=== PATIENT | female | born 1990 | race Hispanic/Latino ===

== ENCOUNTER 2018-02-11 15:43 | Day surgery (SDC) | payer SELFPAY ==
[2018-02-11 17:05] VITALS: BMI 33.8
[2018-02-11 18:45] LABS: Bilirubin Negative (Negative); Blood, Urine Negative (Negative); Clarity CLEAR (Clear); Glucose, Urine (Dipstick) Negative (Negative); Leukocyte Trace (Negative); Nitrite Negative (Negative); Protein, Urine (Dipstick) Negative (Neg-Trace); Urobilinogen 0.2 mg/dL (0.2-1.0); pH, Urine 6.5 (5.0-9.0)
[2018-02-11 18:46] LABS: Bacteria/HPF None Seen HPF (None Seen); Hyaline Casts/LPF 0-3 HYALINE CAST LPF (0-3 Hyaline); Pathc Cast-AUWi Flag 0.43 (0-2.49); RBC/HPF 0-3 HPF (0-3); Squamous Epithelial 0-3 HPF (0-3); WBC/HPF 0-3 HPF (0-3)
[2018-02-11 18:48] LABS: Specific Gravity, Urine 1.005 (1.002-1.036)
--- NOTE | 2018-02-11 20:02 | PDOC.EVN ---
Event Note - Event Note Event Note: S: 27yo G1 at 34 EGA confirmed with 12 week US presented for contractions. Full H&P in physical chart. Contractions remain to be non-painful. Pt feels well with no complaints at this time. O- BP 105/64, HR 138, RR 16, T 98.6 FHT: baseline 140's, mod variability, no deccels/accels. Cat 1. Contractions: q4-5min SVE: fingertip on second check A/P: - pt not in labor, UA and VP3 are pending - will discharge and call pt with results - follow up at [facility] <Carter Vásquez - Last Filed: 02/11/18 20:00> Attending Addendum - Attending Addendum Date/Time: 02/11/18 2195 I personally evaluated the patient and discussed the management with Dr. Vásquez. I agree with the History, Examination, Assessment and Plan documented above. Patient not feeling ctx and exam unchanged over 2 hours. D/c home with precautions. <Jolanta Mcnamara - Last Filed: 02/11/18 22:53>
[2018-02-13 20:52] LABS: Chlamydia by PCR Not Detected (NotDetected)
== END 2018-02-11 19:25 | disposition home or self-care (01) ==
LOC: L&D/OP 15:43
PROVIDERS: ATTEND Obstetrics & Gynecology
DX: O47.03 False labor before 37 completed weeks of gestation, third trimester (principal); O24.415 Gestational diabetes mellitus in pregnancy, controlled by oral hypoglycemic drugs; Z3A.34 34 weeks gestation of pregnancy; Z79.82 Long term (current) use of aspirin; Z79.84 Long term (current) use of oral hypoglycemic drugs; Z79.899 Other long term (current) drug therapy
CPT/HCPCS: 81003; 81015; 87480; 87491; 87510; 87591; 87660; 99285

== ENCOUNTER 2018-03-19 05:41 | Inpatient (IN) | payer MEDICAID, OTHER, SELFPAY ==
[2018-03-19 06:11] VITALS: BMI 32.9
--- NOTE | 2018-03-19 06:26 | PDOC.LDHP ---
Labor and Delivery H&P HPI: 27 yo G1 at 39 at 39.1 here for back pain. Started yesterday after clinic when she was seen for her care and had a cervical check. She rates it 11/30 and it does not radiate. It is localized to b/l lower back and lower abdomen. Describes it as crampy. Has not taken any medications. She endorses minimal vaginal bleeding enough to soak through a pad after being checked in clinic yesterday. Endorses FM and denies LOF/VD. Current gestational age (weeks): 39 (39.1) Due date: 03/25/18 Grav: 1 Para: 0 Current complications: gestational diabetes Abnormal US findings: No Current medications: pre-neda vitamins, other (metformin 500mg BID) Social history: none - Physical Exam General: breathing through contractions, other (discomfort from p ain) Heart: RRR Lungs: CTAB Abdomen: gravid FHT: category 1 [place] contractions every: 2-3 min - Vaginal Exam cm dilated: 4 - OB Labs Blood type: O RH: positive Antibody Screen: negative HIV: negative RPR: negative HEPSAg: negative GBS: negative - Assessment L&D Assessment: term patient in labor - Plan -: 27 yo G1 at 39.1 here with latent labor 1. sIUP, latent labor -SVE: /-1 -FHT: Cat I, christen q2-3min -U/S on 03/04 shows Hadlock of 83% -stadol due to pain from CTXs -will admit for expectant management of labor 2. GDMA2 -accucheck 3. High risk HPV -continue outpatient workup <Nika Mak - Last Filed: 03/19/18 07:56> <Momo Burton - Last Filed: 03/22/18 09:06> Allergies/Adverse Reactions: Allergies Allergy/AdvReac Type Severity Reaction Status Date / Time No Known Allergies Allergy Verified 02/11/18 16:42 Attending Addendum - Attending Addendum Date/Time: 03/22/18 0906 I personally evaluated the patient and discussed the management with Dr. Mak. I agree with the History, Examination, Assessment and Plan documented above. <Momo Burton - Last Filed: 03/22/18 09:06>
[2018-03-19] MEDS ORDERED: Acetaminophen 500 MG TAB PO PRN (07:46)
[2018-03-19] MEDS ORDERED: Promethazine HCl 25 MG/ML VIAL IM PRN ×2 (07:46→14:07)
[2018-03-19] MEDS ORDERED: NS / Oxytocin 40 units/1000ml 1,000 ML IV PRN (07:46)
[2018-03-19] MEDS ORDERED: Ondansetron PF 4 MG/2 ML Vial IVP PRN ×2 (07:46→14:07)
[2018-03-19] MEDS ORDERED: Lidocaine 1% (PF) 30 ML VIAL SC PRN (07:46)
[2018-03-19] MEDS ORDERED: Butorphanol Tartrate 1 MG/ML VIAL SLOW IVP PRN (07:54)
[2018-03-19] MEDS: Lactated Ringer's 1,000 ML IV SCH ×3 (08:18→17:30)
[2018-03-19 08:40] LABS: Mean Corpuscular HGB CONC 33.8 g/dL (32.0-36.0); Mean Corpuscular Hemoglobin 28.4 pg (27.0-31.0); Mean Corpuscular Volume 84.2 fL (78.0-98.0); Mean Platelet Volume 7.6 fL (7.4-10.4); Platelet Count 298 thou/uL (130-400); RBC Distribution Width 14.9 % (11.5-14.5); Red Blood Cell (RBC) Count 4.23 mill/uL (4.20-5.40); White Blood Cell (WBC) Count 11.1 thou/uL (4.8-10.8)
[2018-03-19] MEDS ORDERED: Fentanyl 4 mcg/Bup 0.1% Cadd 100 ML ONE ×3 (08:54→20:45)
[2018-03-19 09:20] LABS: Syphilis Antibody Nonreactive (Nonreactive); Syphilis Antibody Index 0.05 S/CO (<1.00 Non-Reactive)
[2018-03-19 09:21] LABS: HBSAg Index 0.21 S/CO (0-0.99); Hep B Surf Ag Non-Reactive S/CO (NonReactive)
[2018-03-19] MEDS ORDERED: Dextrose 50% Abboject 50 ML SYRINGE SLOW IVP PRN (10:06)
[2018-03-19] MEDS ORDERED: HumaLOG 300 UNITS/3 ML VIAL SC PRN (10:06)
[2018-03-19] MEDS ORDERED: Dextrose 5% in Water 1,000 ML IV PRN (10:06)
--- NOTE | 2018-03-19 13:02 | PDOC.LDPN ---
Labor & Delivery Progress Note - Subjective Subjective: comfortable - Objective Vital signs reviewed and normal: yes General: NAD, resting Uterine fundus: non tender Dilation: 7 Effacement: 100% Station: 0 FHT: category 2 (130/mod/+ accels/occasional early and variable decels) [place] contractions every: 2-3min AROM: meconium stained fluid Plan: continue plan of care -: 27 yo at 39.1wks by LMP sIUP - SVE: 7/100/0, checked by nurse who reported continued bloody fluid. Pt with no abdominal pain, VS stable. Will continue to monitor - FHT: Cat II for occasional and variable decels. christen q2-3min - U/S on 03/04 shows Hadlock of 83% - Epidural in place GDMA2 - Accucheck q2h - SSI - Hypoglycemic protocol - Last glucose 115 Iron Def Anemia - Hg 12 Hx of Chlamydia in - Negative LI High risk HPV - Colpo on 11/16 showed 3 suspicious lesions - Continue outpatient workup 6 wk pp <Lexis Dietz - Last Filed: 03/19/18 13:20> Attending Addendum - Attending Addendum Date/Time: 03/24/18 6440 I personally evaluated the patient and discussed the management with Dr. Lee I agree with the History, Examination, Assessment and Plan documented above with any addition or exceptions noted below. <Yobany Gomez - Last Filed: 03/24/18 07:41>
[2018-03-19] MEDS ORDERED: Acetaminophen 325 MG TAB PO PRN (14:07)
[2018-03-19] MEDS ORDERED: Eucerin (Mineral Oil/Petrolatum,White) 30 gm Jar TOP PRN (14:07)
[2018-03-19] MEDS ORDERED: diphenhydrAMINE 50 MG/ML VIAL IVP PRN (14:07)
[2018-03-19] MEDS ORDERED: Lactated Ringer's 500 ML IV PRN (14:07)
[2018-03-19] MEDS ORDERED: Naloxone HCl 0.4 mg/ml Vial IVP PRN ×2 (14:07)
[2018-03-19] MEDS ORDERED: ePHEDrine/0.9% NaCl/PF SYRINGE 50 mg/10 ml SLOW IVP PRN (14:07)
[2018-03-19] MEDS ORDERED: Communication Order-Pharmacy FS SCH (14:15)
[2018-03-19] MEDS: Fentanyl 4 mcg/Bupivacaine 0.1% Cassette 100 ML EPIDURAL SCH ×2 (14:50→20:46)
--- NOTE | 2018-03-19 15:16 | PDOC.LDPN ---
Labor & Delivery Progress Note - Subjective Subjective: comfortable - Objective Vital signs reviewed and normal: yes General: NAD Uterine fundus: non tender Dilation: 8 Effacement: 100% Station: 0 FHT: category 2 (140/mod/+accels/early and variable decels) [place] contractions every: 2-3min - Assessment (1) Term Code(s): Z34.80 - ENCOUNTER FOR SUPRVSN OF NORMAL , UNSP TRIMESTER Status: Acute Plan: continue plan of care -: 27 yo at 39.1wks by LMP sIUP - SVE: 8/100/0, checked by nurse who reported continued bloody fluid. Pt with brief abdominal pain that was relieved with epidural, VS stable. Will continue to monitor - FHT: Cat II for occasional and variable decels. christen q2-3min - U/S on 03/04 shows Hadlock of 83% - Epidural in place - Continue serial checks GDMA2 - Accucheck q2h - SSI - Hypoglycemic protocol - Last glucose 93 Iron Def Anemia - Hg 12 Hx of Chlamydia in - Negative LI High risk HPV - Colpo on 11/16 showed 3 suspicious lesions - Continue outpatient workup 6 wk pp <Lexis Dietz - Last Filed: 03/19/18 15:14> - Objective Resuscitative measures: other <Yobany Gomez - Last Filed: 03/24/18 07:42> Attending Addendum - Attending Addendum Date/Time: 03/24/1842 I personally evaluated the patient and discussed the management with Dr. Dietz I agree with the History, Examination, Assessment and Plan documented above with any addition or exceptions noted below. <Yobany Gomez - Last Filed: 03/24/18 07:42>
--- NOTE | 2018-03-19 16:34 | PDOC.FM ---
- Objective MAR Reviewed: Yes Vital Signs & Weight: Vital Signs (12 hours) Temp Pulse Resp BP 03/19/18 06:01 97.5 F L 81 16 153/95 H Weight Weight 81.647 kg Result Diagrams: 03/19/18 08:26 Dx/Plan (1) Term Code(s): Z34.80 - ENCOUNTER FOR SUPRVSN OF NORMAL , UNSP TRIMESTER Status: Acute - Plan Plan: 27 yo at 39.1wks by LMP sIUP - SVE: 8.5/100/0, Pt with intermittent abdominal pain mostly relieved by epidural, VS stable. - FHT: Cat II for occasional and variable decels. christen q2-3min - U/S on 03/04 shows Hadlock of 83% - Epidural in place - Continue serial checks GDMA2 - Accucheck q2h - SSI - Hypoglycemic protocol - Last glucose 93 Iron Def Anemia - Hg 12 Hx of Chlamydia in - Negative LI High risk HPV - Colpo on 11/16 showed 3 suspicious lesions - Continue outpatient workup 6 wk pp
--- NOTE | 2018-03-19 16:36 | PDOC.LDPN ---
Labor & Delivery Progress Note - Subjective Subjective: painful contractions - Objective Vital signs reviewed and normal: yes General: NAD Dilation: 8.5 Effacement: 100% Station: 0 FHT: category 2 (140/mod/+ accels/early and variable decels) [place] contractions every: 2-3min AROM: meconium stained fluid - Assessment (1) Term Code(s): Z34.80 - ENCOUNTER FOR SUPRVSN OF NORMAL , UNSP TRIMESTER Current Visit: Yes Status: Acute -: 27 yo at 39.1wks by LMP sIUP - SVE: 8.5/100/0, Pt with intermittent abdominal pain mostly relieved by epidural, VS stable. - Will insert IUPC and consider starting pit - FHT: Cat II for occasional and variable decels. christen q2-3min - U/S on 03/04 shows Hadlock of 83% - Epidural in place - Continue serial checks GDMA2 - Accucheck q2h - SSI - Hypoglycemic protocol - Last glucose 93 Iron Def Anemia - Hg 12 Hx of Chlamydia in - Negative LI High risk HPV - Colpo on 11/16 showed 3 suspicious lesions - Continue outpatient workup 6 wk pp
--- NOTE | 2018-03-19 18:34 | PDOC.LDPN ---
Labor & Delivery Progress Note - Subjective Subjective: comfortable - Objective Vital signs reviewed and normal: yes General: NAD Uterine fundus: non tender Dilation: 8.5 Effacement: 100% Station: 0 FHT: category 2 (150/moderate/+ accels/occasional early decels) [place] contractions every: 2-3min AROM: meconium stained fluid - Assessment (1) Term Code(s): Z34.80 - ENCOUNTER FOR SUPRVSN OF NORMAL , UNSP TRIMESTER Current Visit: Yes Status: Acute -: 27 yo at 39.1wks by LMP sIUP - SVE: unchanged, 8.5/100/0, abdominal pain resolved, VS stable. - IUPC in place with adequate contractions, transverse presentation. - Will start Pitocin - FHT: Cat II for occasional early decels. christen q2-3min - U/S on 03/04 shows Hadlock of 83% - Epidural in place - Continue serial checks GDMA2 - Accucheck q2h - SSI - Hypoglycemic protocol - Last glucose 108 Iron Def Anemia - Hg 12 Hx of Chlamydia in - Negative LI High risk HPV - Colpo on 11/16 showed 3 suspicious lesions - Continue outpatient workup 6 wk pp
[2018-03-19] MEDS ORDERED: NS w/ Oxytocin 10 units 500 ML ONE (20:27)
[2018-03-19] MEDS ORDERED: NS w/ Oxytocin 10 units 500 ML IV SCH (20:30)
--- NOTE | 2018-03-19 20:36 | PDOC.LDPN ---
Labor & Delivery Progress Note - Subjective Subjective: comfortable - Objective Vital signs reviewed and normal: yes General: NAD Uterine fundus: non tender Dilation: 8 Effacement: 100% Station: 0 FHT: category 2 (150/mod/no accels/1 variable decel) [place] contractions every: 2-3min AROM: meconium stained fluid IUPC placed: yes - Assessment (1) Term Code(s): Z34.80 - ENCOUNTER FOR SUPRVSN OF NORMAL , UNSP TRIMESTER Current Visit: Yes Status: Acute -: 27 yo at 39.1wks by LMP sIUP - SVE: unchanged, 8100/0, VS stable. - IUPC in place with adequate contractions, transverse presentation. - Pitocin has not yet been started, contractions no longer adequate - FHT: Cat II for rare variable decel. christen q2-3min - U/S on 03/04 shows Hadlock of 83% - Epidural in place - Continue serial checks GDMA2 - Accucheck q2h - SSI - Hypoglycemic protocol - Last glucose 108 Iron Def Anemia - Hg 12 Hx of Chlamydia in - Negative LI High risk HPV - Colpo on 11/16 showed 3 suspicious lesions - Continue outpatient workup 6 wk pp
[2018-03-19] MEDS ORDERED: Acetaminophen 1,000 MG in Premix Bag 1 BAG IVPB SCH (21:45)
[2018-03-19] MEDS ORDERED: CEFAZOLIN 2 GM/50 ML-DEXTROSE 2 GM in Premix Bag 1 BAG IVPB SCH (21:45)
--- NOTE | 2018-03-19 22:03 | PDOC.LDPN ---
Labor & Delivery Progress Note - Subjective Subjective: comfortable - Objective Vital signs reviewed and normal: yes General: NAD, resting Dilation: 9 Effacement: 100% Station: 1+ FHT: category 1 (baseline 150) [place] contractions every: 2-3 Resuscitative measures: maternal IV fluids Plan: continue plan of care -: 27 yo at 39.1wks by LMP sIUP - SVE:progressing since last check, /+1, VS stable. - IUPC in place with adequate contractions, transverse presentation. - U/S on 03/04 shows Hadlock of 83% - Epidural in place - Continue serial checks GDMA2 - Accucheck q2h - SSI - Hypoglycemic protocol - Last glucose 117 Iron Def Anemia - Hg 12 Hx of Chlamydia in - Negative LI High risk HPV - Colpo on 11/16 showed 3 suspicious lesions - Continue outpatient workup 6 wk pp
[2018-03-20] MEDS: NS / Oxytocin 40 units/1000ml 1,000 ML IV SCH ×2 (00:45→02:28)
[2018-03-20 01:24] LABS: Actual Bicarbonate (HCO3a) 22.2 mEq/L (22-28); Base Excess (BEa) -6.9 mEq/L (-2.0 to +3.0)
[2018-03-20 01:26] LABS: Actual Bicarbonate (HCO3v) 21 mEq/L (22-28); Base Excess -4.6 mEq/L (-2.0 to +3.0); pH (Cord, venous) 7.33 (7.32-7.43)
[2018-03-20] MEDS ORDERED: Milk Of Magnesia 30 ML UDCUP PO PRN (01:52)
[2018-03-20] MEDS ORDERED: Methylergonovine 0.2 MG TAB PO PRN (01:52)
[2018-03-20] MEDS ORDERED: Methylergonovine 0.2 MG/ML VIAL IM PRN (01:52)
[2018-03-20] MEDS ORDERED: Lanolin Ointment 7 GM TUBE TOP PRN (01:52)
[2018-03-20] MEDS ORDERED: Adacel (T-DAP) 0.5 ML VIAL IM ONE (01:52)
[2018-03-20] MEDS ORDERED: Bisacodyl 10 MG SUPP PR PRN (01:52)
--- NOTE | 2018-03-20 04:03 | DN-2 ---
DATE OF DELIVERY: 03/20/2018 DELIVERING PHYSICIANS: 1. Carter Vásquez M.D., PGY-1 2. Vamsi Hodges M.D., PGY-2 3. , PGY-3. ATTENDING: Yobany Gomez M.D. PROCEDURE: Spontaneous vaginal delivery. ANESTHESIA: Epidural. ESTIMATED BLOOD LOSS: 400 mL. PREOPERATIVE DIAGNOSES: 1. Term intrauterine in labor. 2. Gestational diabetes A2. 3. 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 POSTOPERATIVE DIAGNOSES: 1. Term intrauterine , delivered. 2. Gestational diabetes A2. 3. 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 INDICATIONS: A 27-year-old female, G1, P0-0-0-0 at 39 and 1 weeks presented in active labor. DELIVERY NOTE: This is a 27-year-old female, G1, P0-0-0-0 at 39 and 2 weeks who delivered a viable female infant at 0034 hours. Following an uneventful antepartum course, a vigorous female was delivered over an intact perineum in the occiput anterior position, anterior shoulder and then remainder of the body delivered. Nuchal cord x1, body cord x1. The head was held down and mouth and nares were bulb suctioned. Cord clamped and cut and cord blood collected. Placenta delivered intact with a 3-vessel cord noted. Fundal massage was performed and the fundus was firm. Cervix and vagina were inspected and a few first degree lacerations were noted on the perineal wall, but did not require repair at this time. Infant went to the nursery in good condition for routine care. Apgars were 8 and 9 at 1 and 5 minutes respectively. The patient tolerated delivery well and went to after routine recovery care. I was present and supervising the entire second and third stages of delivery. SUZE
[2018-03-20] MEDS: Ibuprofen 800 MG TAB PO SCH ×3 (04:26→22:51)
--- NOTE | 2018-03-20 07:55 | PDOC.PP ---
Post Progress Note Post Day #: 0 Subjective: Feeling well this morning. Having some cramping but it is improved with Motrin. She is feeling a little woozy when standing. Reports lochia is approx the amount of a menstrual cycle. Continuing to attempt but is concerned baby is not latching well. PO intake tolerated: yes Flatus: yes Ambulation: yes Vital Signs (12 hours) Temp Pulse Resp BP 03/20/18 06:00 98.5 F 86 18 134/65 03/20/18 03:50 98.4 F 88 18 132/76 Weight Weight 81.647 kg - Physical Examination General: NAD Cardiovascular: no m/r/g, RRR Respiratory: clear to auscultation bilaterally Abdominal: lochia (scant), appropriately TTP Fundus firm & at: umbilicus Neurological: no gross focal deficits Psychiatric: A&Ox3, normal affect Result Diagrams: 03/19/18 08:26 Additional Labs: Post Labs Blood Type O POSITIVE 03/19/18 08:26 Hep Bs Antigen Non-Reactive S/CO (NonReactive) 03/19/18 08:26 (1) Gestational diabetes Code(s): O24.419 - GESTATIONAL DIABETES MELLITUS IN , UNSP CONTROL Status: Acute - Assessment/Plan 27 yo G1 now P1001 who delivered earlier this morning via , PPD#0 1. PPD #0 - Ambulating and pain adequately controlled - Baby on bili lights this morning for [place] positive - Encouraged ambulation - Lightheaded, will check H&H this morning - Continue PNV - Motrin and Tylenol #3 PRN pain 2. A2GDM - Needs 6 week GTT
[2018-03-20] MEDS ORDERED: Benzocaine/Menthol 20-0.5% 60 ML CAN TOP PRN (07:56)
[2018-03-20 08:37] LABS: Hemoglobin 10.2 g/dL (12.0-16.0); Platelet Count 237 thou/uL (130-400)
[2018-03-20] MEDS: Docusate Calcium (SURFAK) 240 MG CAP PO SCH ×2 (09:45→22:51)
[2018-03-20] MEDS: Prenatal Vitamin 1 TAB PO SCH (09:45)
[2018-03-21] MEDS: Ibuprofen 800 MG TAB PO SCH ×3 (06:22→20:50)
--- NOTE | 2018-03-21 07:55 | PDOC.PP ---
Post Progress Note Post Day #: 1 Subjective: Pt reports doing well. Reports being sore in back. Has been getting up and moving around. Tolerating diet well. Pt concerned with at this time. Says not latching well. Reports lochia about same as period. Pt denies any lightheadness or dizziness. PO intake tolerated: yes Flatus: yes Ambulation: yes Vital Signs (12 hours) Temp Pulse Resp BP 03/20/18 20:00 98.3 F 75 18 100/60 Weight Weight 81.647 kg - Physical Examination General: NAD Cardiovascular: no m/r/g, RRR Respiratory: clear to auscultation bilaterally, non-labored breathing Abdominal: + bowel sounds, lochia (Same as period), no distention, appropriately TTP Extremities: negative homans (B) Neurological: no gross focal deficits Psychiatric: A&Ox3, normal affect Result Diagrams: 03/20/18 08:16 Additional Labs: Post Labs Blood Type O POSITIVE 03/19/18 08:26 Hep Bs Antigen Non-Reactive S/CO (NonReactive) 03/19/18 08:26 (1) Gestational diabetes Code(s): O24.419 - GESTATIONAL DIABETES MELLITUS IN , UNS CONTROL Status: Acute Qualifiers: Gestational diabetes mellitus control: oral hypoglycemic-controlled (2) Term Code(s): Z34.80 - ENCOUNTER FOR SUPRVSN OF NORMAL , [facility] TRIMESTER Status: Acute - Assessment/Plan 27 yo G1 now P1001 who delivered on 03/20/18 via at 0:34, PPD#1 1. PPD #1 - Reports having some back pain. Reports pain being controlled. Discussed with her likely due to length of labor and some muscle soreness due to pushing. Advised to continue to ask for pain medicine as needed - Baby on bili lights this morning for [place] positive. Likely will be here til tmrw - Encouraged ambulation - Continue PNV - Motrin and tylenol prn as needed. 2. A2GDM - Needs 6 week GTT. -BG has been elevated. Last check normal. Continue to monitor today. <Vamsi Hodges - Last Filed: 03/21/18 07:53> Weight Weight 180 lb Result Diagrams: 03/20/18 08:16 Additional Labs: Post Labs Blood Type O POSITIVE 03/19/18 08:26 Hep Bs Antigen Non-Reactive S/CO (NonReactive) 03/19/18 08:26 <Yobany Gomez - Last Filed: 03/24/18 07:50> Attending Addendum - Attending Addendum Date/Time: 03/24/18 0750 I personally evaluated the patient and discussed the management with Dr. Hodges I agree with the History, Examination, Assessment and Plan documented above with any addition or exceptions noted below. <Yobany Gomez - Last Filed: 03/24/18 07:50>
[2018-03-21] MEDS: Prenatal Vitamin 1 TAB PO SCH (09:46)
[2018-03-21] MEDS: Docusate Calcium (SURFAK) 240 MG CAP PO SCH ×2 (09:46→20:50)
[2018-03-21 20:30] VITALS: TEMP 97.6
[2018-03-22] MEDS: Ibuprofen 800 MG TAB PO SCH ×2 (05:19→13:44)
--- NOTE | 2018-03-22 07:59 | PDOC.PP ---
Post Progress Note Post Day #: 2 Subjective: Pt doing well. Reports some occasional leg pain but reports being well controlled with tylenol and motrin. Pt up and moving. No lightheadness or dizziness. Tolerating PO. No other concerns at this time. PO intake tolerated: yes Flatus: yes Ambulation: yes Weight Weight 81.647 kg - Physical Examination General: NAD Cardiovascular: no m/r/g, RRR Respiratory: clear to auscultation bilaterally, non-labored breathing Abdominal: + bowel sounds, lochia (Lochia same as period. No concerns), no distention, appropriately TTP Fundus firm & at: below umbilicus Neurological: no gross focal deficits Psychiatric: A&Ox3, normal affect Result Diagrams: 03/20/18 08:16 Additional Labs: Post Labs Blood Type O POSITIVE 03/19/18 08:26 Hep Bs Antigen Non-Reactive S/CO (NonReactive) 03/19/18 08:26 (1) Gestational diabetes Code(s): O24.419 - GESTATIONAL DIABETES MELLITUS IN , UNSP CONTROL Status: Acute Qualifiers: Gestational diabetes mellitus control: oral hypoglycemic-controlled (2) Term Code(s): Z34.80 - ENCOUNTER FOR SUPRVSN OF NORMAL , UNSP TRIMESTER Status: Acute - Assessment/Plan 27 yo G1 now P1001 who delivered on 03/20/18 via at 0:34, PPD#2 1. PPD #2 - Reports pain being controlled. Discussed with her likely due to length of labor and some muscle soreness due to pushing. Advised to continue to ask for pain medicine as needed - Baby on bili lights this morning for [place] positive. Awaiting bili check. Pending possibly could be discharge today. - Encouraged ambulation - Continue PNV - Motrin and tylenol prn as needed. 2. A2GDM - Needs 6 week GTT. <Vamsi Hodges - Last Filed: 03/22/18 07:57> Vital Signs (12 hours) Temp Pulse Resp BP Pulse Ox 03/22/18 08:13 97.6 F 64 20 113/71 98 Weight Weight 81.647 kg Result Diagrams: 03/20/18 08:16 Additional Labs: Post Labs Blood Type O POSITIVE 03/19/18 08:26 Hep Bs Antigen Non-Reactive S/CO (NonReactive) 03/19/18 08:26 <Momo Burton - Last Filed: 03/22/18 09:12> Attending Addendum - Attending Addendum Date/Time: 03/22/18911 I evaluated the patient and discussed the management with Dr. Hodges. I agree with the Assessment and Plan documented above. <Momo Burton - Last Filed: 03/22/18 09:12>
[2018-03-22 08:24] VITALS: BP 113/71
[2018-03-22] MEDS: Docusate Calcium (SURFAK) 240 MG CAP PO SCH (10:01)
[2018-03-22] MEDS: Prenatal Vitamin 1 TAB PO SCH (10:01)
== END 2018-03-22 18:20 | disposition home or self-care (01) | DRG 806 ==
LOC: L&D/OP 05:41 → L&D 09:47 → 3SW 03-20 03:52
PROVIDERS: ADMIT Obstetrics & Gynecology; ATTEND Obstetrics & Gynecology
PROC: 10E0XZZ Delivery of Products of Conception, External Approach (ICD-10-PCS; principal; 2018-03-20)
PROC: 4A1HXCZ Monitoring of Products of Conception, Cardiac Rate, External Approach (ICD-10-PCS; 2018-03-20)
PROC: 4A1HXFZ Monitoring of Products of Conception, Cardiac Rhythm, External Approach (ICD-10-PCS; 2018-03-20)
DX: O24.425 Gestational diabetes mellitus in childbirth, controlled by oral hypoglycemic drugs (principal); O98.32 Other infections with a predominantly sexual mode of transmission complicating childbirth; Z37.0 Single live birth; Z3A.39 39 weeks gestation of pregnancy; O69.81X0 Labor and delivery complicated by cord around neck, without compression, not applicable or unspecified; O76 Abnormality in fetal heart rate and rhythm complicating labor and delivery; A63.0 Anogenital (venereal) warts; O70.0 First degree perineal laceration during delivery; D50.9 Iron deficiency anemia, unspecified; O99.02 Anemia complicating childbirth
CPT/HCPCS: 36415; 36416; 51702; 82805; 85014; 85018; 85027; 85049; 86780; 86850; 86900; 86901; 87340; 99285; J0131; J0595; J2001

== ENCOUNTER 2018-08-12 20:14 | Emergency (ER) | payer MEDICAID, OTHER ==
[2018-08-12 22:15] LABS: #Eosinphils 0.2 thou/uL (0.0-0.7); #Lymphocytes 2.7 thou/uL (1.20-3.40); #Monocytes 0.3 thou/uL (0.11-0.59); #Neutrophils 5.2 thou/uL (1.40-6.50); %Basophils 0.5 % (0.0-1.0); %Eosinophils 2.1 % (0.0-10.0); %Monocytes 3.7 % (0.0-10.0); %Neutrophils 61.6 % (42.0-75.0); Hemoglobin 12.9 g/dL (12.0-16.0); Mean Corpuscular HGB CONC 34.7 g/dL (32.0-36.0); Mean Corpuscular Hemoglobin 28.2 pg (27.0-31.0); Mean Corpuscular Volume 81.2 fL (78.0-98.0); Mean Platelet Volume 7.9 fL (7.4-10.4); Platelet Count 271 thou/uL (130-400); RBC Distribution Width 12.1 % (11.5-14.5); Red Blood Cell (RBC) Count 4.59 mill/uL (4.20-5.40); White Blood Cell (WBC) Count 8.4 thou/uL (4.8-10.8)
--- NOTE | 2018-08-12 22:35 | CT ---
HEAD CT WITHOUT CONTRAST 08/12/18 HISTORY: Vision changes. Headache. Dizziness. COMPARISON: None. FINDINGS: No parenchymal hemorrhage. No extra-axial hematoma. No midline shift. Basilar cisterns are patent. Br ain volume, age appropriate. Cortical delgadillo-white matter differentiation is preserved. Ventricles and sulci are patent and symmetric. Calvarium is intact. Adequate aeration of the sinuses and mastoid air cells. IMPRESSION: No acute intracranial process. POS: [facility]
[2018-08-12 22:37] LABS: ALT (SGPT) 142 U/L (8-55); AST (SGOT) 126 U/L (5-34); Albumin 4.4 g/dL (3.5-5.0); Alkaline Phosphatase 216 U/L (40-150); Anion Gap 16 mmol/L (10-20); BUN (Urea Nitrogen) 11 mg/dL (7.0-18.7); Bilirubin, Total 0.3 mg/dL (0.2-1.2); Calc. Creatinine Clearance 0 mL/min (70-130); Calcium 9.7 mg/dL (7.8-10.44); Carbon Dioxide 22 mmol/L (22-29); Chloride 98 mmol/L (98-107); Estimated GFR-MDRD 63; Glucose 411 mg/dL (70-105); Potassium 3.9 mmol/L (3.5-5.1); Protein, Total 8.4 g/dL (6.0-8.3); Sodium 132 mmol/L (136-145)
[2018-08-12 22:59] LABS: Bilirubin Negative (Negative); Blood, Urine Trace (Negative); Clarity CLEAR (Clear); Glucose, Urine (Dipstick) >=1000 mg/dL (Negative); Leukocyte Negative (Negative); Nitrite Negative (Negative); Protein, Urine (Dipstick) Negative (Neg-Trace); Specific Gravity, Urine 1.038 (1.002-1.036); pH, Urine 6.5 (5.0-9.0)
[2018-08-12 23:00] LABS: Bacteria/HPF None Seen HPF (None Seen); Hyaline Casts/LPF 0-3 HYALINE CAST LPF (0-3 Hyaline); RBC/HPF 0-3 HPF (0-3); Squamous Epithelial None Seen HPF (0-3); WBC/HPF 0-3 HPF (0-3)
== END 2018-08-13 00:06 | disposition home or self-care (01) ==
LOC: ERS 20:14
DX: O99.89 Other specified diseases and conditions complicating pregnancy, childbirth and the puerperium (principal); H53.8 Other visual disturbances; R79.89 Other specified abnormal findings of blood chemistry; R73.9 Hyperglycemia, unspecified
CPT/HCPCS: 36415; 70450; 80053; 81003; 81015; 85025; 96360

== ENCOUNTER 2018-11-14 19:43 | Emergency (ER) | payer OTHER, SELFPAY ==
[2018-11-14] MEDS ORDERED: Lidocaine 1% w/Epinephrine 1:100K 20 ML VIAL ONE (21:32)
== END 2018-11-14 22:07 | disposition home or self-care (01) ==
LOC: ERS 19:43
DX: L02.412 Cutaneous abscess of left axilla (principal)
CPT/HCPCS: 10060; J2001